=== PATIENT | male | born 1995 | race Two or more races ===

== ENCOUNTER 2019-05-27 12:26 | Emergency (ER) | payer SELFPAY ==
[2019-05-27] MEDS ORDERED: Ibuprofen 400 MG Tab PO ONE (12:51)
--- NOTE | 2019-05-27 12:56 | EDM.PDOC ---
ED [facility] GENERAL MEDICAL PROBLEM - General Chief Complaint: Upper Extremity Injury/Pain Stated Complaint: RIGHT HAND SWELLING Time Seen by Provider: 05/27/19 12:54 - History of Present Illness INITIAL COMMENTS - FREE TEXT/NARRATIVE: 24-year-old male no past medical history presenting chief complaint of right hand pain and swelling. Patient states pain started after punching a wall last night. Patient states he has not done any intervention and has not taken the pain medication. Patient states the swelling is progressively worsened. Patient states the pain is moderate in nature. Denies numbness tingling or weakness. No other injury. In addition to that documented in the HPI above, the additional ROS was obtained : Constitutional: Denies fevers or chills Eyes: Denies vision changes ENMT: Denies sore throat CV: Denies chest pain Resp: Denies SOB GI: Denies vomiting or diarrhea : Denies painful urination MSK: Denies recent trauma Skin: Denies new rashes Neuro: Denies new numbness or tingling or weakness Endocrine: Denies unexpected weight loss Heme: Denies bleeding disorders I have reviewed the triage vital signs Const: Well nourished, well developed, appears stated age Eyes: PERRL, no conjunctival injection HENT: NCAT, Neck supple without meningismus CV: RRR, Warm, well-perfused extremities RESP: CTAB, Unlabored respiratory effort GI: soft, non-tender, non-distended, no masses MSK: Right hand around the fifth metacarpal demonstrates mild swelling and tenderness to palpation. No other focal areas of tenderness. Neurologically intact. No vascular injury noted. No gross deformities appreciated Skin: Warm, dry. 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 Sensation and motor function of extremities grossly intact. Psych: Appropriate mood and affect Right hand Pain Score (Numeric/FACES): 7 - Related Data Allergies Allergy/AdvReac Type Severity Reaction Status Date / Time No Known Allergies Allergy Verified 05/27/19 12:35 Home Meds: Home Meds . [No Known Home Meds] 05/27/19 [History] Past Medical History - Past Health History Medical/Surgical History: Denies Medical/Surgical History - Infectious Disease History Infectious Disease History: Reports: None Social & Family History - Family History Family Medical History: Noncontributory - Tobacco Use Smoking Status *Q: Never Smoker Second Hand Smoke Exposure: No - Caffeine Use Caffeine Use: Reports: None - Recreational Drug Use Recreational Drug Use: No Review of Systems - Review of Systems Review Of Systems: See Below ED EXAM, GENERAL - Physical Exam Exam: See Below Course - Vital Signs Last Recorded V/S: Last Vital Signs Temp 35.9 C 05/27/19 12:35 Pulse 66 05/27/19 12:35 Resp 16 05/27/19 12:35 BP 134/98 H 05/27/19 12:35 Pulse Ox 97 05/27/19 12:35 - Orders/Labs/Meds Meds: Medications Discontinued Medications Generic Name Dose Route Start Last Admin Trade Name Delaney PRN Reason Stop Dose Admin Ibuprofen 400 mg 05/27/19 12:51 05/27/19 13:01 Motrin PO 05/27/19 12:52 400 mg ONETIME ONE Administration Departure - Departure Time of Disposition: 13:45 Disposition: Home, Self-Care 01 Condition: Good Clinical Impression: Fracture of metacarpal bone - Discharge Information Instructions: Metacarpal Fracture, [id number] Referrals: PCP,None [Primary Care Provider] - Forms: ED Department Discharge Sepsis Event Note - Evaluation Sepsis Screening Result: No Definite Risk - Focused Exam Vital Signs: Vital Signs Temp Pulse Resp BP Pulse Ox 05/27/19 12:35 35.9 C 66 16 134/98 H 97 Date Exam was Performed: 05/27/19 Time Exam was Performed: 13:45 - Assessment/Plan Assessment:: Patient is a 24-year-old male presenting with right hand pain. X-rays demonstrate boxer's fracture fifth metacarpal. Reduction required. Splint placed in the emergency department. Pain is controlled. Neurovascularly intact. Patient instructed for no heavy lifting will seen by orthopedic clinic. No lifting greater than 20 pounds. All questions addressed and answered. Patient agrees with plan
--- NOTE | 2019-05-27 13:24 | CR ---
Right hand: 3 views of the right hand were obtained. Comparison: No previous and exam. Fracture is identified within the mid shaft of the 5th metacarpal with minimal angulation. Soft tissue swelling is noted. No additional fracture, dislocation or other bony abnormality is seen. Impression: 1. Slightly angulated mid right 5th metacarpal fracture with soft tissue swelling. Diagnostic code #3 This report was dictated in [place] Standard Time
== END 2019-05-27 14:12 | disposition home or self-care (01) ==
LOC: MW.ED 12:26
DX: S62.326A Displaced fracture of shaft of fifth metacarpal bone, right hand, initial encounter for closed fracture (principal); W22.01XA Walked into wall, initial encounter
CPT/HCPCS: 73130; 99283; A9270

== ENCOUNTER 2019-06-04 02:39 | Emergency (ER) | payer SELFPAY ==
--- NOTE | 2019-06-04 02:54 | EDM.PDOC ---
ED [facility] GENERAL MEDICAL PROBLEM - General Chief Complaint: Upper Extremity Injury/Pain Stated Complaint: CAST ON RIGHT HAND/WRIST- EXTREME PAIN Time Seen by Provider: 06/04/19 02:48 Source of Information: Reports: Patient History Limitations: Reports: No Limitations - History of Present Illness INITIAL COMMENTS - FREE TEXT/NARRATIVE: Patient has a fractured metacarpal. Patient was put in a splint and then resplinted. 4 days ago he was placed in another splint and now he is having pain and feels that his splint is too tight. States he has occasional numbness to his fingers. Duration: Day(s):, Waxing/Waning Right hand Pain Score (Numeric/FACES): 9 - Related Data Allergies Allergy/AdvReac Type Severity Reaction Status Date / Time No Known Allergies Allergy Verified 06/04/19 02:50 Home Meds: Home Meds . [No Known Home Meds] 05/27/19 [History] Past Medical History - Past Health History Medical/Surgical History: Denies Medical/Surgical History - Infectious Disease History Infectious Disease History: Reports: None Social & Family History - Family History Family Medical History: Noncontributory - Tobacco Use Smoking Status *Q: Never Smoker - Caffeine Use Caffeine Use: Reports: None - Recreational Drug Use Recreational Drug Use: No Review of Systems - Review of Systems Review Of Systems: Comprehensive ROS is negative, except as noted in HPI. Constitutional: Reports: No Symptoms Eyes: Reports: Foreign Body Sensation Ears: Reports: No Symptoms Nose: Reports: No Symptoms Mouth/Throat: Reports: No Symptoms Respiratory: Reports: No Symptoms Cardiovascular: Reports: No Symptoms GI/Abdominal: Reports: No Symptoms Genitourinary: Reports: No Symptoms Musculoskeletal: Reports: Hand Pain Skin: Reports: No Symptoms Neurological: Reports: Paresthesia Psychiatric: Reports: No Symptoms ED EXAM, GENERAL - Physical Exam Exam: See Below Exam Limited By: No Limitations General Appearance: Alert, WD/WN, No Apparent Distress Ears: Normal External Exam, Normal Canal Head: Atraumatic, Normocephalic Respiratory/Chest: No Respiratory Distress Cardiovascular: Normal Peripheral Pulses GI/Abdominal: No: Normal Bowel Sounds (Male) Exam: Deferred Rectal (Males) Exam: Deferred Extremities: Normal Inspection (The patient has full range of motion with the fingers. Patient has good capillary reflex. No signs of entrapment. Cast appears to be in good placement.) Course - Vital Signs Text/Narrative:: A 3 view x-ray was performed on the wrist and hand. This shows a carpal fracture with acceptable angulation. All carpal bones appear intact all metacarpal bones appear intact. Patient insist on going to second opinion with an orthopedist. Given the patient a list of orthopedics in [place] Feel that this cast is adequate and there is no entrapment or neurovascular issues at this time. Last Recorded V/S: Last Vital Signs Temp 97.1 F 06/04/19 02:40 Pulse 70 06/04/19 02:40 Resp 18 06/04/19 02:40 BP 142/91 H 06/04/19 02:40 Pulse Ox 97 06/04/19 02:40 - Orders/Labs/Meds Orders: Active Orders 24 hr Category Date Time Status Wrist Comp Min 3V Rt [CR] Stat Exams 06/04/19 02:52 Taken Departure - Departure Time of Disposition: 03:35 Disposition: Home, Self-Care 01 Condition: Good Clinical Impression: Metacarpal bone fracture - Discharge Information Instructions: Metacarpal Fracture, [id number] Referrals: PCP,None [Primary Care Provider] - Forms: ED Department Discharge Sepsis Event Note - Evaluation Sepsis Screening Result: No Definite Risk - Focused Exam Vital Signs: Vital Signs Temp Pulse Resp BP Pulse Ox 06/04/19 02:40 97.1 F 70 18 142/91 H 97 Date Exam was Performed: 06/04/19 Time Exam was Performed: 03:30 - My Orders Last 24 Hours: My Active Orders 06/04/19 02:52 Wrist Comp Min 3V Rt [CR] Stat - Assessment/Plan Last 24 Hours: My Active Orders 06/04/19 02:52 Wrist Comp Min 3V Rt [CR] Stat
--- NOTE | 2019-06-04 05:07 | CR ---
INDICATION: Wrist pain. Status post casting 4 days ago. COMPARISON: 05/17/2019 TECHNIQUE: The right wrist is examined with PA, lateral, and oblique views. FINDINGS: During the interval, a fiberglass cast has been placed. Again seen is the acute, oblique fracture of the midshaft of the 5th metacarpal with approximately 30 degrees volar and 15 degrees radial angulation of the distal fracture fragment. Nothing else is seen elsewhere in the wrist or hand to explain the patient`s pain, with no sign of additional fracture or dislocation. Soft tissue detail is limited by the cast. IMPRESSION: No interval change in mildly angulated, oblique fracture of the midshaft of the 5th metacarpal status post casting. Dictated by Antonino Moseley MD @ Jun 04 2019 4:57AM Signed by Dr. Antonino Moseley @ Jun 04 2019 5:05AM
== END 2019-06-04 04:00 | disposition home or self-care (01) ==
LOC: MW.ED 02:39
DX: S62.326A Displaced fracture of shaft of fifth metacarpal bone, right hand, initial encounter for closed fracture (principal); X58.XXXA Exposure to other specified factors, initial encounter
CPT/HCPCS: 73110-26-RT; 73110-RT; 99284-25

== ENCOUNTER 2019-10-01 05:16 | Emergency (ER) | payer SELFPAY ==
[2019-10-01] MEDS ORDERED: Ondansetron 4 MG/2 ML SDV ONE (05:30)
--- NOTE | 2019-10-01 05:37 | EDM.PDOC ---
<Miracle Mccormick - Last Filed: 10/01/19 07:25> ED HPI GENERAL MEDICAL PROBLEM - General Chief Complaint: Drug or Alcohol Abuse Stated Complaint: INTOXICATION Time Seen by Provider: 10/01/19 05:24 - History of Present Illness INITIAL COMMENTS - FREE TEXT/NARRATIVE: 24-year-old male presents intoxicated. Patient is been drinking heavily tonight and said he drank "2 bottles of 50 proof." The patient was apparently loud and boisterous at home the police were called. They escorted him to the emergency department. Per the , the patient has been suicidal for the last 24 hours voicing similar concerns. That being said the patient has been using Kamini, LSD, and drinking heavily. When asked in the department, the patient did admit to all of this. He also did endorse being suicidal but this is been present for "many years." When asked about previous suicide attempt the patient endorses 3 previous attempts last in 2016 by hanging. Patient however denies ever being in a psychiatric hospital. Patient denies any recent fever, chills, chest pain, shortness of breath, vision changes, headaches, abdominal pain, changes in bowel or bladder habits. Patient does endorse nausea and the patient was vomiting here in the department. - Related Data Allergies Allergy/AdvReac Type Severity Reaction Status Date / Time No Known Allergies Allergy Verified 10/01/19 05:47 Home Meds: Home Meds . [No Known Home Meds] 05/27/19 [History] Past Medical History - Past Health History Medical/Surgical History: Denies Medical/Surgical History - Infectious Disease History Infectious Disease History: Reports: None Social & Family History - Family History Family Medical History: Noncontributory - Caffeine Use Caffeine Use: Reports: None ED ROS GENERAL - Review of Systems Review Of Systems: Comprehensive ROS is negative, except as noted in HPI. ED EXAM, GENERAL - Physical Exam Free Text/Narrative:: General: No acute distress. Heent: Examination revealed no pallor, no icterus, no lymphadenopathy. The patient has normal posterior pharynx, moist mucous membranes. Neck: Supple. No JVD. No rigidity. Heart: Normal rate. Reg rhythm. No murmurs appreciated. Lungs: Bilaterally clear to auscultation. No focal findings. Abdomen: Obese. Nontender, non-distended, soft, no CVA tenderness. Neuro: Pt is moving all four extremities. EOMI. PERRL. Normal speech. Skin: Exposed areas appeared normally perfused, warm, normal color with no meaningful rashes or lesions. Extremities: Peripheral examination revealed no pedal edema. Course - Vital Signs Text/Narrative:: Patient here endorsing some suicidal thoughts but no particular plan. He reports has been suicidal for "years." He does however have some previous attempts but no previous admissions. This patient is very heavily intoxicated. He would not benefit from a consultation with psychiatric services right now because he would be unable to provide a reasonable history. Patient will be passed on to Dr. Morales who will reassess the patient after he achieves some semblance of sobriety and can be assessed for suicidality and likely consulted to psychiatric services. Last Recorded V/S: Last Vital Signs Temp 96.5 F L 10/01/19 05:20 Pulse 83 10/01/19 09:49 Resp 18 10/01/19 09:49 BP 123/51 L 10/01/19 09:49 Pulse Ox 95 10/01/19 08:45 - Orders/Labs/Meds Orders: Active Orders 24 hr Category Date Time Status EKG Documentation Completion [RC] STAT Care 10/01/19 08:03 Active Labs: Laboratory Tests 10/01/19 10/01/19 10/01/19 Range/Units 05:30 05:30 05:30 WBC 10.67 (4.0-11.0) K/uL RBC 5.46 (4.50-5.90) M/uL Hgb 16.5 (13.0-17.0) g/dL Hct 46.9 (38.0-50.0) % MCV 85.9 (80.0-98.0) fL MCH 30.2 (27.0-32.0) pg MCHC 35.2 (31.0-37.0) g/dL RDW Std Deviation 41.6 (28.0-62.0) fl RDW Coeff of [place] 13 (11.0-15.0) % Plt Count 245 (150-400) K/uL MPV 10.30 (7.40-12.00) fL Neut % (Auto) 53.9 (48.0-80.0) % Lymph % (Auto) 36.6 (16.0-40.0) % [place] % (Auto) 7.7 (0.0-15.0) % Eos % (Auto) 1.5 (0.0-7.0) % Baso % (Auto) 0.3 (0.0-1.5) % Neut # (Auto) 5.8 H (1.4-5.7) K/uL Lymph # (Auto) 3.9 H (0.6-2.4) K/uL [place] # (Auto) 0.8 (0.0-0.8) K/uL Eos # (Auto) 0.2 (0.0-0.7) K/uL Baso # (Auto) 0.0 (0.0-0.1) K/uL Nucleated RBC % 0.0 /100WBC Nucleated RBCs # 0 K/uL Sodium (136-148) mmol/L Potassium (3.5-5.1) mmol/L Chloride (98-107) mmol/L Carbon Dioxide (21.0-32.0) mmol/L BUN (7.0-18.0) mg/dL Creatinine (0.8-1.3) mg/dL Est Cr Clr Drug Dosing mL/min Estimated GFR (MDRD) ml/min Glucose (74-106) mg/dL POC Glucose (60-110) mg/dL Calcium (8.5-10.1) mg/dL Total Bilirubin (0.2-1.0) mg/dL AST (15-37) IU/L ALT (14-63) IU/L Alkaline Phosphatase (46-116) U/L Total Protein (6.4-8.2) g/dL Albumin (3.4-5.0) g/dL Globulin (2.6-4.0) g/dL Albumin/Globulin Ratio (0.9-1.6) Urine Opiates Screen (NEGATIVE) Ur Oxycodone Screen (NEGATIVE) Urine Methadone Screen (NEGATIVE) Acetaminophen <2.0 ug/mL Ur Barbiturates Screen (NEGATIVE) Ur Phencyclidine Scrn (NEGATIVE) Ur Amphetamine Screen (NEGATIVE) U Methamphetamines Scrn (NEGATIVE) U Benzodiazepines Scrn (NEGATIVE) U Cocaine Metab Screen (NEGATIVE) U Marijuana (THC) Screen (NEGATIVE) Ethyl Alcohol 224 mg/dL 04/24/20 04/24/20 04/24/20 Range/Units 05:30 05:34 07:25 WBC (4.0-11.0) K/uL RBC (4.50-5.90) M/uL Hgb (13.0-17.0) g/dL Hct (38.0-50.0) % MCV (80.0-98.0) fL MCH (27.0-32.0) pg MCHC (31.0-37.0) g/dL RDW Std Deviation (28.0-62.0) fl RDW Coeff of [place] (11.0-15.0) % Plt Count (150-400) K/uL MPV (7.40-12.00) fL Neut % (Auto) (48.0-80.0) % Lymph % (Auto) (16.0-40.0) % [place] % (Auto) (0.0-15.0) % Eos % (Auto) (0.0-7.0) % Baso % (Auto) (0.0-1.5) % Neut # (Auto) (1.4-5.7) K/uL Lymph # (Auto) (0.6-2.4) K/uL [place] # (Auto) (0.0-0.8) K/uL Eos # (Auto) (0.0-0.7) K/uL Baso # (Auto) (0.0-0.1) K/uL Nucleated RBC % /100WBC Nucleated RBCs # K/uL Sodium 138 (136-148) mmol/L Potassium 3.5 (3.5-5.1) mmol/L Chloride 101 (98-107) mmol/L Carbon Dioxide 20.3 L (21.0-32.0) mmol/L BUN 12 (7.0-18.0) mg/dL Creatinine 1.0 (0.8-1.3) mg/dL Est Cr Clr Drug Dosing 127.18 mL/min Estimated GFR (MDRD) > 60.0 ml/min Glucose 143 H (74-106) mg/dL POC Glucose 121 H (60-110) mg/dL Calcium 8.4 L (8.5-10.1) mg/dL Total Bilirubin 0.5 (0.2-1.0) mg/dL AST 55 H (15-37) IU/L ALT 116 H (14-63) IU/L Alkaline Phosphatase 103 (46-116) U/L Total Protein 7.8 (6.4-8.2) g/dL Albumin 4.1 (3.4-5.0) g/dL Globulin 3.7 (2.6-4.0) g/dL Albumin/Globulin Ratio 1.1 (0.9-1.6) Urine Opiates Screen NEGATIVE (NEGATIVE) Ur Oxycodone Screen NEGATIVE (NEGATIVE) Urine Methadone Screen NEGATIVE (NEGATIVE) Acetaminophen ug/mL Ur Barbiturates Screen NEGATIVE (NEGATIVE) Ur Phencyclidine Scrn NEGATIVE (NEGATIVE) Ur Amphetamine Screen NEGATIVE (NEGATIVE) U Methamphetamines Scrn NEGATIVE (NEGATIVE) U Benzodiazepines Scrn NEGATIVE (NEGATIVE) U Cocaine Metab Screen NEGATIVE (NEGATIVE) U Marijuana (THC) Screen NEGATIVE (NEGATIVE) Ethyl Alcohol mg/dL 10/01/19 Range/Units 08:03 WBC (4.0-11.0) K/uL RBC (4.50-5.90) M/uL Hgb (13.0-17.0) g/dL Hct (38.0-50.0) % MCV (80.0-98.0) fL MCH (27.0-32.0) pg MCHC (31.0-37.0) g/dL RDW Std Deviation (28.0-62.0) fl RDW Coeff of [place] (11.0-15.0) % Plt Count (150-400) K/uL MPV (7.40-12.00) fL Neut % (Auto) (48.0-80.0) % Lymph % (Auto) (16.0-40.0) % [place] % (Auto) (0.0-15.0) % Eos % (Auto) (0.0-7.0) % Baso % (Auto) (0.0-1.5) % Neut # (Auto) (1.4-5.7) K/uL Lymph # (Auto) (0.6-2.4) K/uL [place] # (Auto) (0.0-0.8) K/uL Eos # (Auto) (0.0-0.7) K/uL Baso # (Auto) (0.0-0.1) K/uL Nucleated RBC % /100WBC Nucleated RBCs # K/uL Sodium (136-148) mmol/L Potassium (3.5-5.1) mmol/L Chloride (98-107) mmol/L Carbon Dioxide (21.0-32.0) mmol/L BUN (7.0-18.0) mg/dL Creatinine (0.8-1.3) mg/dL Est Cr Clr Drug Dosing mL/min Estimated GFR (MDRD) ml/min Glucose (74-106) mg/dL POC Glucose (60-110) mg/dL Calcium (8.5-10.1) mg/dL Total Bilirubin (0.2-1.0) mg/dL AST (15-37) IU/L ALT (14-63) IU/L Alkaline Phosphatase (46-116) U/L Total Protein (6.4-8.2) g/dL Albumin (3.4-5.0) g/dL Globulin (2.6-4.0) g/dL Albumin/Globulin Ratio (0.9-1.6) Urine Opiates Screen (NEGATIVE) Ur Oxycodone Screen (NEGATIVE) Urine Methadone Screen (NEGATIVE) Acetaminophen ug/mL Ur Barbiturates Screen (NEGATIVE) Ur Phencyclidine Scrn (NEGATIVE) Ur Amphetamine Screen (NEGATIVE) U Methamphetamines Scrn (NEGATIVE) U Benzodiazepines Scrn (NEGATIVE) U Cocaine Metab Screen (NEGATIVE) U Marijuana (THC) Screen (NEGATIVE) Ethyl Alcohol 185 mg/dL Meds: Medications Discontinued Medications Generic Name Dose Route Start Last Admin Trade Name Freq PRN Reason Stop Dose Admin Sodium Chloride 2,000 mls @ 999 mls/hr 10/01/19 05:45 10/01/19 05:48 Normal Saline IV 10/01/19 07:45 999 mls/hr .BOLUS ONE Administration Sodium Chloride 1,000 mls @ 999 mls/hr 10/01/19 08:40 10/01/19 08:45 Normal Saline IV 10/01/19 09:40 999 mls/hr .Bolus ONE Administration Ketorolac Tromethamine 15 mg 10/01/19 05:45 10/01/19 05:49 Toradol IVPUSH 10/01/19 05:46 15 mg ONETIME ONE Administration Ondansetron HCl Confirm 10/01/19 05:30 10/01/19 05:45 Zofran Administered 10/01/19 05:31 Not Given Dose 4 mg .ROUTE .STK-MED ONE Ondansetron HCl 4 mg 10/01/19 05:44 10/01/19 05:35 Zofran IVPUSH 10/01/19 05:45 4 mg ONETIME ONE Administration Departure - Departure Disposition: Home, Self-Care 01 Clinical Impression: Alcohol abuse - Discharge Information Instructions: Alcohol Use Disorder, Alcohol Intoxication, [id number], Finding Treatment for Addiction Referrals: PCP,None [Primary Care Provider] - Forms: ED Department Discharge Additional Instructions: Do not abuse alcohol. Follow up with your PCP in the next two to four days. Drink plenty of clear liquids for the next 24-48 hours. Rest for the next 24 hours. Return to the ED if your condition gets worse or should you have any questions or concerns. The following information is given to patients seen in the emergency department who are being discharged to home. This information is to outline your options for follow-up care. We provide all patients seen in our emergency department with a follow-up referral. The need for follow-up, as well as the timing and circumstances, are variable depending upon the specifics of your emergency department visit. If you don't have a primary care physician on staff, we will provide you with a referral. We always advise you to contact your personal physician following an emergency department visit to inform them of the circumstance of the visit and for follow-up with them and/or the need for any referrals to a consulting specialist. The emergency department will also refer you to a specialist when appropriate. This referral assures that you have the opportunity for follow-up care with a specialist. All of these measure are taken in an effort to provide you with optimal care, which includes your follow-up. Under all circumstances we always encourage you to contact your private physician who remains a resource for coordinating your care. When calling for follow-up care, please make the office aware that this follow-up is from your recent emergency room visit. If for any reason you are refused follow-up, please contact the [facility] Emergency Department at and asked to speak to the emergency department charge nurse. Sepsis Event Note - Focused Exam Vital Signs: Vital Signs Temp Pulse Resp BP Pulse Ox 10/01/19 09:49 83 18 123/51 L 10/01/19 08:45 84 21 H 133/86 95 10/01/19 08:03 80 19 132/63 93 L 10/01/19 07:06 82 20 131/68 96 10/01/19 06:37 77 22 H 129/78 94 L 10/01/19 06:20 70 139/69 10/01/19 06:06 79 114/72 10/01/19 05:51 73 14 125/70 91 L 10/01/19 05:20 96.5 F L 76 20 143/76 H 97 Date Exam was Performed: 10/01/19 Time Exam was Performed: 07:25 - My Orders Last 24 Hours: My Active Orders 10/01/19 08:03 EKG Documentation Completion [RC] STAT - Assessment/Plan Last 24 Hours: My Active Orders 10/01/19 08:03 EKG Documentation Completion [RC] STAT <Dex Morales - Last Filed: 10/01/19 10:10> ED ROS GENERAL - Review of Systems Review Of Systems: See Below (This was done after he was alert and oriented times 3.) Constitutional: Reports: No Symptoms HEENT: Reports: No Symptoms Respiratory: Reports: No Symptoms Cardiovascular: Reports: No Symptoms Endocrine: Reports: No Symptoms GI/Abdominal: Reports: Nausea, Vomiting. Denies: Hematemesis, Hematochezia, Melena : Reports: No Symptoms Musculoskeletal: Reports: No Symptoms Skin: Reports: No Symptoms Neurological: Reports: Other (somewhat intoxicated). Denies: Confusion, Dizziness, Headache, Tremors Psychiatric: Reports: Depression (mild depression that is reactionary to his girlfriend breaking up with him), Suicidal Ideation (fleeting thoughts since his break up yesterday with his girlfriend (Dejah). NO plan.) Hematologic/Lymphatic: Reports: No Symptoms ED EXAM, GENERAL - Physical Exam Exam: See Below Free Text/Narrative:: I am seeing this patient that was signed out to me by Dr. Miracle Mccormick at 7 :18AM. He reported that the patient arrived by ambulance after binge drinking. and taking LSD. He discussed with me that when he wakes up and I have re- evaluated him to either discharge him or refer him to a Psych facility with the diagnosis of suicidal ideation/history of drug abuse. I requested of Dr. Mccormick to order a drug screen and to get a blood alcohol level. This was done. I have accepted the patient in handoff. DCR Exam Limited By: Intoxication (No longer intoxicated at this time.) General Appearance: Alert, WD/WN, No Apparent Distress Eye Exam: Bilateral Eye: EOMI, Normal Fundi, PERRL Ears: Normal External Exam, Normal Canal, Hearing Grossly Normal, Normal TMs Ear Exam: Bilateral Ear: Auricle Normal, Canal Normal, TM normal Nose: Normal Inspection, Normal Mucosa Throat/Mouth: Normal Inspection, Normal Oropharynx Head: Atraumatic, Normocephalic Neck: Normal Inspection, Supple, Non-Tender, Full Range of Motion Respiratory/Chest: No Respiratory Distress, Lungs Clear, Normal Breath Sounds, Chest Non-Tender Cardiovascular: Normal Peripheral Pulses, Regular Rate, Rhythm, No Edema, No Gallop, No Murmur Peripheral Pulses: 3+: Radial (L), Radial (R), Dorsalis Pedis (L), Dorsalis Pedis (R), 4+: Carotid (L), Carotid (R) GI/Abdominal: Normal Bowel Sounds, Soft, Non-Tender, No Organomegaly, No Abnormal Bruit, No Mass, Other (Obesity) (Male) Exam: Deferred Rectal (Males) Exam: Deferred Back Exam: Normal Inspection, Full Range of Motion Extremities: Normal Inspection, Normal Range of Motion, Normal Capillary Refill. No: [place]'s Sign Neurological: Alert, Oriented (times 4), CN II-XII Intact, Normal Reflexes, No Motor/Sensory Deficits Psychiatric: Normal Affect, Normal Mood Skin Exam: Warm, Dry, Intact, Normal Color, No Rash Lymphatic: No Adenopathy Course - Vital Signs Text/Narrative:: I talked with his girlfriend "Ms. Dejah Rodriguez" at 8:20AM. She told me that he sometimes gets depressed but has never suggested suicide and that he has gotten help through [facility] and had been doing well. She states that she confronted him with cheating on her yesterday and that he was very upset with himself and decided to go into his garage and set in his car and drink a large bottle of Vodka. He also told her that he took drugs as well. She states that he began to bang his head on the garage door and that is when she called the police. She states that he has never done this before and that she is the one that has been attending AA and that he has gone with her. She states that she still loves him and that he has a tremendous support system at home including "[employer]" support group. I discussed this with the patient but he is still to inebriated for in depth discussion. I will let the alcohol wear off and re-evaluate. His initial blood alcohol was 224 but is now 185. His drug screen is negative. The patient was re-evaluated at 9:58AM. He is alert and walking without problems. His vital signs are all normal. He states that what he did in so far as the large amount of alcohol consumption was due to his girlfriend breaking up with him. At this time he is not suicidal or homicidal. He will be discharged. The patient agrees with the discharge plan. Departure - Departure Time of Disposition: 10:09 Condition: Good - Discharge Information *PRESCRIPTION DRUG MONITORING PROGRAM REVIEWED*: Yes *COPY OF PRESCRIPTION DRUG MONITORING REPORT IN PATIENT TALYA: Yes Sepsis Event Note - Focused Exam Date Exam was Performed: 10/01/19 Time Exam was Performed: 09:58
[2019-10-01] MEDS ORDERED: Ondansetron 4 MG/2 ML SDV IVPUSH ONE (05:44)
[2019-10-01] MEDS ORDERED: Ketorolac 30 MG/ML SDV IVPUSH ONE (05:45)
[2019-10-01] MEDS ORDERED: Sodium Chloride 0.9% 2,000 ML IV ONE (05:45)
--- NOTE | 2019-10-01 06:42 | CR ---
INDICATION: Low oxygen saturation; aspiration. COMPARISON: None. TECHNIQUE: Portable AP chest. FINDINGS: Normal size cardiac silhouette. Clear lung devries with no evidence of acute pneumonic infiltrates or CHF. No pneumothorax or pleural effusion. IMPRESSION: Negative portable AP chest. Dictated by Mitch Rosado MD @ Oct 01 2019 6:39AM Signed by Dr. Mitch Rosado @ Oct 01 2019 6:40AM
[2019-10-01 08:30] LABS: BLOOD UREA NITROGEN,BUN 12 mg/dL (7.0-18.0); CARBON DIOXIDE,CO2 20.3 mmol/L (21.0-32.0); CHLORIDE,CL 101 mmol/L (98-107); GLUCOSE RANDOM 143 mg/dL (74-106); POTASSIUM,K 3.5 mmol/L (3.5-5.1); SODIUM,NA 138 mmol/L (136-148)
[2019-10-01] MEDS ORDERED: Sodium Chloride 0.9% 1,000 ML IV ONE (08:40)
== END 2019-10-01 10:13 | disposition home or self-care (01) ==
LOC: MW.ED 05:16
DX: F10.129 Alcohol abuse with intoxication, unspecified (principal); Y90.7 Blood alcohol level of 200-239 mg/100 ml
CPT/HCPCS: 36415; 71045; 80053; 80305; 80307; 82962; 85025; 93005; 96361; 96374; 96375; 99284; J1885; J2405; J7030; 99285